=== PATIENT | male | born 2000 | race Caucasian/White ===

== ENCOUNTER 2025-05-07 20:34 | Emergency (ER) | payer SELFPAY ==
[~2025-05-07] VITALS: Ht 177.8 cm; Wt 109.0 kg
[2025-05-07 20:42] VITALS: O2SAT 96
[2025-05-07] MEDS: BACITRACIN ZINC OINT UDPKT TOP ONE (21:45)
[2025-05-07] MEDS: HYDROCODONE/ACETAMINOPHEN 5/325MG TABLET PO ONE (22:01)
[2025-05-07] MEDS: SULFAMETHOXAZOLE/TRIMETHOPRIM 800/160MG TABLET PO ONE (22:34)
[2025-05-07] MEDS: LIDOCAINE HCL 1% 20ML VIAL INFIL ONE (22:36)
[2025-05-07] MEDS ORDERED: BO1 TP (22:51)
[2025-05-07] MEDS ORDERED: IBUP-1455 MT (22:51)
[2025-05-07] MEDS ORDERED: SULF1TAB48 MT (22:51)
[2025-05-07] MEDS ORDERED: HYDR-4001 MT (22:52)
[2025-05-07 23:20] VITALS: BP 130/85; PULSE 68; RESP 19; TEMP 36.6; O2SAT 99
== END 2025-05-07 23:35 | disposition home or self-care (01) ==
LOC: ER 20:34
DX: S61.211A Laceration without foreign body of left index finger without damage to nail, initial encounter (principal); X58.XXXA Exposure to other specified factors, initial encounter; Y93.89 Activity, other specified; Y92.89 Other specified places as the place of occurrence of the external cause; Y99.8 Other external cause status
CPT/HCPCS: 99284; 73140; 12002; J2003